=== PATIENT | male | born 1945 | race Caucasian/White ===

== ENCOUNTER 2024-04-24 07:16 | Observation (INO) | payer MEDICARE ==
[2024-04-24 08:24] LABS: Absolute Neutrophil Ct (ANC) 3.75 x10^3/uL (1.78-5.38); BASOPHIL % 0.2 % (0.2-1.2); Basophil (Absolute #) 0.01 x10^3/uL (0.01-0.08); Eosinophil % 0.4 % (0.8-7.0); Eosinophil (Absolute #) 0.02 x10^3/uL (0.04-0.54); Hematocrit 31.9 % (40.1-51.0); Hemoglobin 10.6 g/dL (13.7-17.5); IMMATURE GRAN # 0.02 x10^3u/L (0.001-0.031); IMMATURE GRAN % 0.4 % (0.001-0.429); Lymphocyte (Absolute #) 0.48 x10^3/uL (1.32-3.57); Lymphocytes % 10.5 % (21.8-53.1); Mean Cell Volume 96.4 fL (79.0-92.2); Mean Corpuscular Hgb Concent. 33.2 g/dL (32.3-36.5); Mean Platelet Volume 13.2 fL (9.4-12.4); Monocyte (Absolute #) 0.29 x10^3/uL (0.30-0.82); Monocytes % 6.3 % (5.3-12.2); Neutrophil % 82.2 % (34.0-67.9); Platelet Count 73 x10^3/uL (163-337); Red Blood Count 3.31 x10^6/uL (4.63-6.08); Red Cell Distribution Width 17.2 % (11.6-14.4); White Blood Count 4.6 x10^3/uL (4.23-9.07)
[2024-04-24 08:38] LABS: INR 1.23 (0.8-3.0); PROTIME 13.2 SECONDS (9.4-12.5)
[2024-04-24 08:39] LABS: ALBUMIN 2.6 g/dL (3.5-5.0); ANION GAP 13.1 MEQ/L (5-15); BILIRUBIN,TOTAL 0.7 mg/dL (0.2-1.3); Calcium 8.5 mg/dL (8.4-10.2); Creatinine 1 1.32 mg/dL (0.66-1.25); EST GLOMERULAR FILTRATION RATE 55.2 ML/MIN; Potassium 3.8 mmol/L (3.5-5.1); Total Protein 5.1 g/dL (6.3-8.2)
--- NOTE | 2024-04-24 08:54 | XRAY ---
Indication: Pneumonia. Comparison: The liver 2021 Portable chest demonstrates new minimal left upper lung infiltrate/atelectasis. Previous right apical mass appears much smaller. No consolidations/large effusion. Heart not enlarged. Bony thorax intact again with osteopenia and degenerative changes.
--- NOTE | 2024-04-24 09:39 | XRAY ---
Indication: Status post fall. Multiple contiguous axial images obtained through the head without contrast. Comparison: None Age-appropriate global atrophy and moderate periventricular degenerative micro-ischemia bilaterally. No acute intracranial hemorrhage, abnormal extra-axial fluid collection, or mass effect. Fourth ventricle is midline without hydrocephalus. Bony calvarium intact. Complete opacification left maxillary sinus. Remaining paranasal sinuses and mastoid air cells are clear. Impression: Nonacute senile brain with incidental left maxillary sinus disease.
--- NOTE | 2024-04-24 09:54 | XRAY ---
Indication: Status post fall. History prostate cancer. Multiple contiguous axial images obtained through the chest without contrast. Comparison: April 14, 2019 Right apex demonstrates new irregular noncalcified masslike opacity measuring at least 1.5 x 3.3 x 2.5 cm with adjacent minimal pleural thickening. Left upper lobe demonstrates new irregular noncalcified masslike opacity measuring at least 2.5 x 1.2 x 1.0 cm. Medial right lower lobe demonstrates new irregular noncalcified nodule measuring 0.8 x 1.0 x 0.8 cm. Findings concerning for malignancy. Also new small right and tiny left lung base effusions with adjacent compressive atelectasis. Remaining lungs again demonstrates moderate pulmonary emphysema including small right base bullae. Heart is not enlarged again with extensive scattered coronary calcifications. Aorta remains moderately arteriosclerotic without aneurysm. Stable tiny right hilar calcified nodes. No pathologic mediastinal lymphadenopathy. Bony thorax demonstrates new finding for lateral right 3 and posterior right 6 rib sclerotic lesions possibly metastatic in this patient with history of prostate cancer. Also new findings for old right 5-9 and left 3/4 rib fractures and old superior sternal fracture. Again chronic findings including osteopenia, moderate multilevel degenerative spondylosis, and old right humeral head fracture. CT abdomen/pelvis reported separately. Impression: 1. New right upper, right lower, and left upper lobe irregular noncalcified masslike opacities as detailed concerning for malignancy. Also new small right/tiny left effusions. 2. New right 3/6 rib sclerotic lesions concerning for metastasis in this patient with history of prostate cancer. 3. New finding for old bilateral rib and sternal fractures. 4. Chronic findings including pulmonary emphysema, arteriosclerotic disease, osteopenia, multilevel degenerative spondylosis, old right humeral head fracture, and old granulomatous disease.
--- NOTE | 2024-04-24 10:03 | XRAY ---
Indication: Status post fall. History prostate cancer. Multiple contiguous axial images obtained through the abdomen and pelvis without contrast. Comparison: April 14, 2019 CT chest reported separately. Noncontrasted stomach and bowel loops appear nonobstructed. Right lobe liver demonstrates new subtle hypodense lesions, largest posteriorly measuring at least 2.9 x 4.4 cm concerning for metastasis. New small abdominal/tiny pelvic ascites. No walled off fluid collection or free air. Again incidental 2.4 cm left renal cyst and prostate radiation seeds. Remaining gallbladder, pancreas, spleen, adrenal glands, kidneys, ureters, and bladder are unremarkable for noncontrast exam. Again extensive aortoiliac calcifications without AAA. Osseous structures again demonstrates osteopenia, mild/moderate multilevel degenerative spondylosis, minimal dextroscoliosis, superior L2 Schmorl node, mild degenerative changes both hips, tiny right femur head and left innominate/SI joint bone islands, and old left proximal femur fracture with incompletely visualized orthopedic hardware. Impression: 1. New subtle hepatic hypodense lesions concerning for metastasis. 2. New small abdominal/tiny pelvic ascites. 3. Chronic findings including left renal cyst, arteriosclerotic disease and chronic bony findings.
[2024-04-24 10:18] LABS: Slide Review 1 YES
[2024-04-24 10:55] LABS: Appearance Clear (Clear); Bacteria None Seen /HPF (None Seen); Bilirubin Negative (Negative); Blood Negative (Negative); Epithelial Cells Rare /HPF (None Seen); Glucose, Urine Negative (Negative); Ketones Negative (Negative); Leukocyte Esterase Negative (Negative); Nitrite Negative (Negative); Ph 5.5 (4.6-8.0); Protein,Urine Dip Negative (Negative); RBC 0-2 /HPF (0-5); Specific Gravity 1.015 (1.005-1.030); Urobilinogen 0.2 mg/dL (0.2)
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
[2024-04-24] MEDS: Nicoderm CQ 21 MG TOP ONE ×2 (11:28→16:38)
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
[2024-04-24] MEDS ORDERED: HUMALOG SQ PRN (12:52)
[2024-04-24] MEDS ORDERED: VITAMIN D2 PO PRN (15:27)
[2024-04-24] MEDS: Glucophage 500 MG PO SCH (16:50)
[2024-04-24] MEDS: Klor Con PO SCH (16:50)
[2024-04-24] MEDS: ZOCOR 20MG PO SCH (16:51)
[2024-04-24] MEDS: ECOTRIN 81 MG PO SCH (16:51)
[2024-04-24] MEDS: HEPARIN 5000 UNITS/0.5 ML (HIGH RISK MED) SQ SCH (16:52)
[2024-04-24] MEDS: Flomax 0.4 MG PO SCH (16:52)
[2024-04-24] MEDS: Ditropan XL 5 MG PO SCH (16:52)
[2024-04-24] MEDS: FOLATE 1 MG PO SCH (16:52)
[2024-04-24] MEDS: Cozaar 50 MG PO SCH (16:52)
[2024-04-24] MEDS: CLARITIN 10 MG PO SCH (16:53)
[2024-04-24] MEDS: Sodium Chloride 0.9% 1000 ML 1,000 ML IV SCH (16:53)
[2024-04-24] MEDS: CORTISONE 1% CREAM TOP SCH (16:53)
[2024-04-24] MEDS: DELTASONE 10 MG PO SCH (22:03)
[2024-04-24] MEDS: FISH OIL 1,000 MG CAPSULE PO SCH (22:03)
[2024-04-24] MEDS: Calcium 500MG W/Vit D Tablet PO SCH (22:03)
[2024-04-24] MEDS: Protonix 40MG Tablet PO SCH (22:03)
[2024-04-24] MEDS: IMODIUM 2 MG PO SCH (22:09)
[2024-04-24] MEDS: LOPID PO SCH (22:19)
[2024-04-25 06:02] LABS: Hematocrit 29.7 % (40.1-51.0); Hemoglobin 9.8 g/dL (13.7-17.5); Mean Cell Volume 96.4 fL (79.0-92.2); Mean Corpuscular Hemoglobin 31.8 pg (25.7-32.2); Mean Platelet Volume 12.6 fL (9.4-12.4); Platelet Count 56 x10^3/uL (163-337); Red Blood Count 3.08 x10^6/uL (4.63-6.08); Red Cell Distribution Width 17.2 % (11.6-14.4); White Blood Count 4.1 x10^3/uL (4.23-9.07)
[2024-04-25 07:15] LABS: ALBUMIN 2.2 g/dL (3.5-5.0); ANION GAP 12.2 MEQ/L (5-15); BILIRUBIN,TOTAL 0.5 mg/dL (0.2-1.3); Calcium 7.9 mg/dL (8.4-10.2); Creatinine 1 1.12 mg/dL (0.66-1.25); EST GLOMERULAR FILTRATION RATE 67.2 ML/MIN; Potassium 3.3 mmol/L (3.5-5.1); Total Protein 4.4 g/dL (6.3-8.2)
[2024-04-25] MEDS: Zofran 4 MG/2 ML VIAL IV PRN (09:33)
[2024-04-25] MEDS: Klor Con PO ONE (09:57)
[2024-04-25] MEDS: SODIUM BICARBONATE PO SCH (09:57)
[2024-04-25 12:24] LABS: MAGNESIUM 1.7 mg/dL (1.6-2.3); Potassium 3.9 mmol/L (3.5-5.1)
[2024-04-25] MEDS ORDERED: ZOFRAN ODT 4 MG PO PRN (14:01)
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
[2024-04-25 17:20] VITALS: RESP 18
[2024-04-26 05:52] LABS: Hematocrit 30.4 % (40.1-51.0); Hemoglobin 9.7 g/dL (13.7-17.5); Mean Corpuscular Hemoglobin 31.6 pg (25.7-32.2); Mean Corpuscular Hgb Concent. 31.9 g/dL (32.3-36.5); Platelet Count 56 x10^3/uL (163-337); Red Blood Count 3.07 x10^6/uL (4.63-6.08); Red Cell Distribution Width 17.2 % (11.6-14.4); White Blood Count 6.5 x10^3/uL (4.23-9.07)
[2024-04-26] MEDS: PROVENTIL 2.5 MG/3 ML NEB IH PRN (06:01)
[2024-04-26 06:13] LABS: ALBUMIN 2.5 g/dL (3.5-5.0); ANION GAP 12.5 MEQ/L (5-15); BILIRUBIN,TOTAL 0.5 mg/dL (0.2-1.3); Calcium 8.5 mg/dL (8.4-10.2); Creatinine 1 1.23 mg/dL (0.66-1.25); EST GLOMERULAR FILTRATION RATE 60.1 ML/MIN; Potassium 4.4 mmol/L (3.5-5.1); Total Protein 4.8 g/dL (6.3-8.2)
[2024-04-26 07:06] LABS: Slide Review YES
[2024-04-26 08:44] VITALS: TEMP 96.3
[2024-04-26 12:11] VITALS: BP 83/50; PULSE 103; O2SAT 98
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
[2024-04-30] MEDS ORDERED: Fosamax 70 MG PO SCH (06:00)
== END 2024-04-26 16:14 ==
LOC: ED 07:16 → MED SURG 12:09
PROVIDERS: ADMIT Internal Medicine; ATTEND Internal Medicine
DX: N17.9 Acute kidney failure, unspecified (principal); Z59.82 Transportation insecurity; E87.20 Acidosis, unspecified; R53.1 Weakness; R64 Cachexia; R79.89 Other specified abnormal findings of blood chemistry; R62.7 Adult failure to thrive; F17.200 Nicotine dependence, unspecified, uncomplicated; E78.5 Hyperlipidemia, unspecified; C34.90 Malignant neoplasm of unspecified part of unspecified bronchus or lung; J44.9 Chronic obstructive pulmonary disease, unspecified; E11.9 Type 2 diabetes mellitus without complications; E87.6 Hypokalemia; R29.6 Repeated falls; L89.152 Pressure ulcer of sacral region, stage 2; Z79.899 Other long term (current) drug therapy
CPT/HCPCS: 36415; 70450; 71045; 71250; 74176; 80053; 81001; 82150; 82947; 83036; 83690; 83735; 84132; 84484; 85025; 85027; 85610; 87040; 87077; 87086; 87186; 93005; 94640; 94760; 97161; 97530; 99285; Q3014; G0378; J1644; J2405; J7609; A9270-GY

== ENCOUNTER 2024-05-03 16:21 | Emergency (ER) | payer MEDICARE ==
[2024-05-03] MEDS ORDERED: Sodium Chloride 0.9% 1000 ML 1,000 ML ONE (16:32)
[2024-05-03] MEDS: Sodium Chloride 0.9% 1000 ML 1,000 ML IV STA (16:40)
--- NOTE | 2024-05-03 17:12 | ERPHSYRPT ---
- History of Present Illness Time Seen by Provider: 05/03/24 17:10 Source: patient, EMS Patient Subjective Stated Complaint: Pt. states,"I feel fine, I fell today but I'm okay." Facility staff reported that pt. is normally on 2L O2 and they increased him to 5L and he is still 90%. He did fall but was not seriously injured." Triage Nursing Assessment: Pt. arrived by ambulance on stretcher, A&Ox3, resp even, slightly labored, using accessory muscles. Physician History: Patient is 78-year-old male with significant past medical history of metastatic prostate cancer who was undergoing rehab at a local extended care facility where patient felt weak and fall but did not injure himself or did not lose any consciousness. He usually uses 3 L of oxygen but today he required 5 L of oxygen with oxygen saturation 90% nursing staff got concerned and they sent him to the emergency room for further evaluation. In [facility] patient blood pressure was 90s systolic. When patient was seen in ER patient blood pressure was 90/58. Timing/Duration: today Associated Symptoms: denies symptoms Allergies/Adverse Reactions: codeine Allergy (Verified 04/24/24 07:19) meperidine [From Demerol] Adverse Reaction (Verified 04/24/24 07:19) Nausea and Vomiting Home Medications: Alendronate Sodium 70 mg [Fosamax 70 MG] 70 mg PO WEEKLY 04/24/24 [History] Aspirin EC 81 mg [Ecotrin 81 mg] 81 mg PO DAILY 04/24/24 [History] Atorvastatin Calcium 80 mg PO DAILY 04/24/24 [History] Calcium Carbonate [Calcium] 600 mg PO BID 04/24/24 [History] Cetirizine HCl [All Day Allergy Relief] 10 mg PO DAILY 04/24/24 [History] Cholecalciferol (Vitamin D3) [Vitamin D3] 50,000 unit PO UD 04/24/24 [History] Folic Acid 1 mg PO DAILY 04/24/24 [History] Hydrocortisone 1% Cream [Cortisone 1% Cream] 1 gm TOP QID 04/24/24 [History] Loperamide HCl 2 mg [Imodium 2 mg] 2 mg PO UD 04/24/24 [History] Losartan Potassium 50 mg [Cozaar 50 MG] 50 mg PO DAILY 04/24/24 [History] Metformin HCl 500 mg [Glucophage 500 MG] 500 mg PO BID 04/24/24 [History] Omeprazole 20 mg PO BID 04/24/24 [History] Oxybutynin Chloride [Oxybutynin Chloride ER] 15 mg PO DAILY 04/24/24 [History] Potassium Chloride 1 mg PO DAILY 04/24/24 [History] Prednisone 10 mg [Deltasone 10 mg] 10 mg PO BID 04/24/24 [History] Tamsulosin HCl 0.4 mg [Flomax 0.4 MG] 0.4 mg PO DAILY 04/24/24 [History] gemfibroziL [Gemfibrozil] 600 mg PO BID 04/24/24 [History] icosapent ethyL [Vascepa] 2 gm PO BID 04/24/24 [History] Hx Tetanus, Diphtheria Vaccination/Date Given: No Hx Influenza Vaccination/Date Given: Yes Hx Pneumococcal Vaccination/Date Given: Yes Immunizations Up to Date: Yes Travel Risk - International Travel Have you traveled outside of the country in past 3 weeks: No - Emerging Infectious Disease Are you exhibiting symptoms associated with any current EIDs: No Symptoms: Diarrhea - Review of Systems Constitutional: Lethargy, Weakness, No Fever, No Chills Eyes: No Symptoms Ears, Nose, & Throat: No Symptoms Respiratory: No Cough, No Dyspnea Cardiac: No Chest Pain, No Edema, No Syncope Abdominal/Gastrointestinal: No Abdominal Pain, No Nausea, No Vomiting, No Diarrhea Genitourinary Symptoms: No Dysuria Musculoskeletal: No Back Pain, No Neck Pain Skin: No Rash Neurological: No Dizziness, No Focal Weakness, No Sensory Changes Psychological: No Symptoms Endocrine: No Symptoms All Other Systems: Reviewed and Negative - Past Medical History Pertinent Past Medical History: Yes Neurological History: No Pertinent History ENT History: Cataracts Cardiac History: High Cholesterol, Hypertension Respiratory History: COPD, Lung Cancer Endocrine Medical History: Diabetes Type II Musculoskeletal History: Fractures GI Medical History: Ulcer History: No Pertinent History Psycho-Social History: No Pertinent History Male Reproductive Disorders: Prostate Cancer Other Medical History: Lung CA, COPD, Type 2 Diabetes, emphysema, acute kidney failure, hyperlipidemia, cACHEXIA, sACRAL PRESSURE SORE, PROSTATE ca, htn - Past Surgical History Past Surgical History: Yes Neuro Surgical History: No Pertinent History Cardiac: No Pertinent History Respiratory: No Pertinent History Gastrointestinal: Appendectomy Genitourinary: No Pertinent History Musculoskeletal: Orthopedic Surgery Male Surgical History: No Pertinent History Other Surgical History: surgery for perferated ulcer, cross eye repair - Social History Smoking Status: Current every day smoker How long have you smoked: 30 + Years Exposure to second hand smoke: No Drug Use: none Patient Lives Alone: Yes - Social Determinants of Health Will the patient participate in the screening: Declined to provide - Nursing Vital Signs Nursing Vital Signs: Initial Vital Signs Blood Pressure 85/47 05/03/24 16:27 Pain Scale Pain Intensity 0 - Physical Exam General Appearance: no apparent distress, alert Eye Exam: PERRL/EOMI, eyes nml inspection Ears, Nose, Throat Exam: normal ENT inspection, TMs normal, pharynx normal, moist mucous membranes Neck Exam: normal inspection, non-tender, supple, full range of motion Respiratory Exam: normal breath sounds, lungs clear, No respiratory distress Cardiovascular Exam: regular rate/rhythm, normal heart sounds, normal peripheral pulses Gastrointestinal/Abdomen Exam: soft, normal bowel sounds, No tenderness, No mass Back Exam: normal inspection, normal range of motion, No CVA tenderness, No vertebral tenderness Extremity Exam: normal inspection, normal range of motion, pelvis stable Neurologic Exam: alert, oriented x 3, cooperative, normal mood/affect, nml cerebellar function, nml station & gait, sensation nml, No motor deficits Skin Exam: normal color, warm, dry, No rash Lymphatic Exam: No adenopathy SpO2: 91 - Course Nursing assessment & vital signs reviewed: Yes EKG Interpreted by Me: Sinus Rhythm Ordered Tests: Active Orders 24 hr Category Date Time Status CBC W DIFF Stat Lab 05/03/24 17:14 Completed CMP Stat Lab 05/03/24 17:14 Completed MAGNESIUM Stat Lab 05/03/24 17:14 Completed Medication Summary Discontinued Medications Generic Name Dose Route Start Last Admin Trade Name Freq PRN Reason Stop Dose Admin Sodium Chloride 1,000 mls @ 999 mls/hr 05/03/24 16:31 05/03/24 16:40 Sodium Chloride 0.9% 1000 Ml IV 05/03/24 17:31 999 mls/hr .Q1H1M STA Administration Sodium Chloride Confirm 05/03/24 16:32 Sodium Chloride 0.9% 1000 Ml Administered 05/03/24 16:33 Dose 1,000 mls @ ud .ROUTE .K-MED ONE Lab/Rad Data: Laboratory Result Diagrams 05/03/24 17:14 05/03/24 17:14 Laboratory Results 05/03/24 05/03/24 Range/Units 17:14 17:14 WBC 8.8 (4.23-9.07) x10^3/uL RBC 3.25 L (4.63-6.08) x10^6/uL Hgb 10.5 L (13.7-17.5) g/dL Hct 34.1 L (40.1-51.0) % MCV 104.9 H (79.0-92.2) fL MCH 32.3 H (25.7-32.2) pg MCHC 30.8 L (32.3-36.5) g/dL RDW 17.6 H (11.6-14.4) % Plt Count 68 L (163-337) x10^3/uL MPV 13.7 H (9.4-12.4) fL Gran % 95.2 H (34.0-67.9) % Immature Gran % (Auto) 0.6 H (0.001-0.429) % Nucleat RBC Rel Count 0.0 (0.00-0.2) % Eos # (Auto) 0 L (0.04-0.54) x10^3/uL Immature Gran # (Auto) 0.05 H (0.001-0.031) x10^3u/L Absolute Lymphs (auto) 0.17 L (1.32-3.57) x10^3/uL Absolute Monos (auto) 0.20 L (0.30-0.82) x10^3/uL Absolute Nucleated RBC 0.00 (0.00-0.012) x10^3u/L Lymphocytes % 1.9 L (21.8-53.1) % Monocytes % 2.3 L (5.3-12.2) % Eosinophils % 0.0 L (0.8-7.0) % Basophils % 0.0 L (0.2-1.2) % Absolute Granulocytes 8.42 H (1.78-5.38) x10^3/uL Basophils # 0 L (0.01-0.08) x10^3/uL Sodium 135 (135-145) mmol/L Potassium 4.4 (3.5-5.1) mmol/L Chloride 106 (98-107) mmol/L Carbon Dioxide 13 L* (22-30) mmol/L Anion Gap 20.2 H (5-15) MEQ/L BUN 22 H (9-20) mg/dL Creatinine 1.17 (0.66-1.25) mg/dL Estimated GFR 63.8 ML/MIN Glucose 99 (74-106) mg/dL Calcium 8.2 L (8.4-10.2) mg/dL Magnesium 1.6 (1.6-2.3) mg/dL Total Bilirubin 0.90 (0.2-1.3) mg/dL AST 76 H (17-59) U/L ALT 53 H (0-50) U/L Alkaline Phosphatase 209 H (38-126) U/L Serum Total Protein 5.2 L (6.3-8.2) g/dL Albumin 2.9 L (3.5-5.0) g/dL - Progress Progress: improved Progress Note: 05/03/24 18:04 Patient has end-stage metastatic prostate cancer which is spread to the lung liver and bones which is causing systemic inflammatory response causing him hypotension. We left a message with patient's daughter and advised her to call us back as her father is very weak and lethargic and unable to understand the situation. Counseled pt/family regarding: lab results, diagnosis, rad results Medical Desision Making - Independent Historian Additional History obtained from: Family - Diagnostic Testing Diagnostic test were ordered, analyzed, and reviewed by me: Yes Radiological Interpretation: Interpreted by me, Reviewed by me - Risk of complications The pt has a high risk of morbidity or mortality based on: Decision not to resucitate, Need for parental consent - Departure Departure Disposition: Extended Care Facility Clinical Impression: Hypotension due to hypovolemia, Adenocarcinoma of prostate, stage 4 Condition: Stable Critical Care Time: Yes Critical Care Time(excluding separately billable procedures): Critical 30-74 mins Referrals: BLANCA JOSE, [employer] [Primary Care Provider] - Follow up/PCP as directed Additional Instructions: I talked to patient's daughter extensively about patient's disease process including end-stage stage IV metastatic prostate cancer which has spread to the lung liver bones which is causing generalized systemic inflammatory response causing patient's weakness hypotension hypoxemia patient daughter understood to date and they are also all siblings aware of patient's situation. Patient's daughter is planning to come tomorrow morning. I advised patient's for comfort measures. Discharge/Care Plan JOLANTA COSTA was seen on 05/03/24 in the Emergency Room. The patient was counseled regarding Diagnosis,Lab results, Imaging studies, need for follow up and when to return to the Emergency Room. Prescriptions given: Discharge Note I have spoken with the patient and/or caregivers. I have explained the patient's condition, diagnosis and treatment plan based on the information available to me at this time. I have answered the patient's and/or caregiver's questions and a ddressed any concerns. The patient and/or caregivers have as good understanding of the patient's diagnosis, condition and treatment plan as can be expected at this point. The vital signs have been stable. The patient's condition is stable and appropriate for discharge from the emergency department. The patient will pursue further outpatient evaluation with the primary care physician or other designated or consulting physician as outlined in the discharge instructions. The patient and/or caregivers are agreeable to this plan of care and follow-up instructions have been explained in detail. The patient and/or caregivers have received these instruction. The patient/and or caregivers are aware that any significant change in condition or worsening of symptoms should prompt an immediate return to this or the closest emergency department or call 911.
[2024-05-03 17:26] LABS: Absolute Neutrophil Ct (ANC) 8.42 x10^3/uL (1.78-5.38); Basophil (Absolute #) 0 x10^3/uL (0.01-0.08); Eosinophil (Absolute #) 0 x10^3/uL (0.04-0.54); Hematocrit 34.1 % (40.1-51.0); Hemoglobin 10.5 g/dL (13.7-17.5); IMMATURE GRAN # 0.05 x10^3u/L (0.001-0.031); IMMATURE GRAN % 0.6 % (0.001-0.429); Lymphocyte (Absolute #) 0.17 x10^3/uL (1.32-3.57); Lymphocytes % 1.9 % (21.8-53.1); Mean Cell Volume 104.9 fL (79.0-92.2); Mean Corpuscular Hemoglobin 32.3 pg (25.7-32.2); Mean Corpuscular Hgb Concent. 30.8 g/dL (32.3-36.5); Mean Platelet Volume 13.7 fL (9.4-12.4); Monocytes % 2.3 % (5.3-12.2); Neutrophil % 95.2 % (34.0-67.9); Platelet Count 68 x10^3/uL (163-337); Red Blood Count 3.25 x10^6/uL (4.63-6.08); Red Cell Distribution Width 17.6 % (11.6-14.4); White Blood Count 8.8 x10^3/uL (4.23-9.07)
[2024-05-03 17:34] LABS: ALBUMIN 2.9 g/dL (3.5-5.0); ANION GAP 20.2 MEQ/L (5-15); BILIRUBIN,TOTAL 0.9 mg/dL (0.2-1.3); Calcium 8.2 mg/dL (8.4-10.2); Creatinine 1 1.17 mg/dL (0.66-1.25); EST GLOMERULAR FILTRATION RATE 63.8 ML/MIN; MAGNESIUM 1.6 mg/dL (1.6-2.3); Potassium 4.4 mmol/L (3.5-5.1); Total Protein 5.2 g/dL (6.3-8.2)
[2024-05-03 19:12] VITALS: RESP 18
[2024-05-03 21:13] VITALS: O2SAT 98
[2024-05-03 22:05] VITALS: BP 86/66; PULSE 56
[2024-05-04 00:08] LABS: Slide Review 1 YES
== END 2024-05-03 22:10 ==
LOC: ED 16:21
DX: E86.1 Hypovolemia (principal); I95.9 Hypotension, unspecified; C61 Malignant neoplasm of prostate; C78.00 Secondary malignant neoplasm of unspecified lung; C79.51 Secondary malignant neoplasm of bone; R53.1 Weakness; W19.XXXA Unspecified fall, initial encounter; Y92.129 Unspecified place in nursing home as the place of occurrence of the external cause; Z99.81 Dependence on supplemental oxygen; Z79.899 Other long term (current) drug therapy
CPT/HCPCS: 36415; 80053; 83735; 85025; 96360; 99283; 99291